=== PATIENT | male | born 1960 | race Two or more races ===

== ENCOUNTER 2019-08-30 07:12 | Outpatient (CLI) | payer OTHER | END 2019-08-30 07:35 | disposition home or self-care (01) | LOC: NUCLEAR 07:12 | DX: I20.8 Other forms of angina pectoris (principal); R06.09 Other forms of dyspnea; R79.82 Elevated C-reactive protein (CRP); F17.200 Nicotine dependence, unspecified, uncomplicated; E78.2 Mixed hyperlipidemia; R73.03 Prediabetes; R03.0 Elevated blood-pressure reading, without diagnosis of hypertension; E66.09 Other obesity due to excess calories; Z82.49 Family history of ischemic heart disease and other diseases of the circulatory system; Z68.32 Body mass index [BMI] 32.0-32.9, adult | CPT/HCPCS: 78452; 93017; A9500 ==